=== PATIENT | male | born 1945 | race Caucasian/White ===

== ENCOUNTER 2017-06-03 17:32 | Emergency (ER) | payer MEDICARE ==
[2017-06-03] MEDS ORDERED: Tetracaine 0.5% OPTH.SOL 4 ML* 1 DROP BTL RIGHT EYE ONE (18:16)
[2017-06-03] MEDS ORDERED: Fluorescein Sodium TOPICAL* 1 MG TEST OPHTHALMIC ONE (18:17)
[2017-06-03] MEDS ORDERED: Erythromycin TOPICAL GEL* 30 GM TUBE TOPICAL ONE (18:51)
[2017-06-03] MEDS ORDERED: oxyCODONE/Acetamin 5/325 MG* TAB PO ONE (18:52)
--- NOTE | 2017-06-03 18:55 | ED ---
Throat Pain/Nasal Congestion - HPI Summary HPI Summary: 71M presents with branch to right eye. He does not wear contacts or glasses. He has visible scratch to upper cornea on exam. He admits to photophobia, extreme pain. He admits to watery discharge. He denies any other injury. He has not taken anything for pain. pain is 10/10. - History of Current Complaint Chief Complaint: EDEyeProblem Time Seen by Provider: 06/03/17 18:17 - Allergies/Home Medications Allergies/Adverse Reactions: Allergies Allergy/AdvReac Type Severity Reaction Status Date / Time Buckwheat Allergy ASTHMA, Verified 10/18/12 07:27 WEIRD FEELING IN MOUTH EGGPLANT Allergy WEIRD Uncoded 10/18/12 07:27 FEELING IN MOUTH ENVIRONMENTAL Allergy SINUS Uncoded 07/16/15 14:33 SUNFLOWER SEEDS Allergy WEIRD Uncoded 10/18/12 07:27 FEELING IN MOUTH PMH/Surg Hx/FS Hx/Imm Hx Endocrine/Hematology History: Denies: Hx Diabetes, Hx Thyroid Disease Cardiovascular History: Denies: Hx Hypertension Respiratory History: Reports: Hx Asthma - WELL CONTROLLED Denies: Hx Chronic Obstructive Pulmonary Disease (COPD) GI History: Reports: Hx Gastroesophageal Reflux Disease - AT TIMES- FOOD RELATED Denies: Hx Ulcer History: Reports: Hx Kidney Stones - 1 CURRENTLY- MONITORED- DR. WASHINGTON Sensory History: Reports: Hx Contacts or Glasses - READING Denies: Hx Hearing Aid Opthamlomology History: Reports: Hx Contacts or Glasses - READING - Surgical History Surgery Procedure, Year, and Place: Hernia repair - Immunization History Immunizations Up to Date: Yes Infectious Disease History: No Infectious Disease History: Denies: Hx Hepatitis, Hx Human Immunodeficiency Virus (HIV), History Other Infectious Disease, Traveled Outside the [place] in Last 30 Days - Family History Known Family History: Positive: Hypertension - Social History Alcohol Use: Daily Alcohol Amount: wine Substance Use Type: Reports: None Smoking Status (MU): Never Smoked Tobacco Review of Systems Negative: Fever Positive: Other - pain right eye Negative: Chest Pain Negative: Shortness Of Breath All Other Systems Reviewed And Are Negative: Yes Physical Exam Triage Information Reviewed: Yes Vital Signs On Initial Exam: Initial Vitals Temp Pulse Resp BP Pulse Ox 98.5 F 66 20 146/76 98 06/03/17 17:50 06/03/17 17:50 06/03/17 17:50 06/03/17 17:50 06/03/17 17:50 Vital Signs Reviewed: Yes Appearance: Positive: Pain Distress Skin: Positive: Warm, Dry Head/Face: Positive: Normal Head/Face Inspection Eyes: Positive: Normal, EOMI, ROMULO, Conjunctiva Clear, Other: - uptake at 12 position with scratch down cornea ENT: Positive: Normal ENT inspection, Pharynx normal, TMs normal Respiratory/Lung Sounds: Positive: Clear to Auscultation, Breath Sounds Present Cardiovascular: Positive: Normal, RRR Musculoskeletal: Positive: Normal Neurological: Positive: Normal Psychiatric: Positive: Normal - [place] Coma Scale Coma Scale Total: 15 Procedures - Eye Procedure Alcaine Drops Administered: Yes - uptake at 12 position and scratch down cornea Diagnostics - Vital Signs Vital Signs Temp Pulse Resp BP Pulse Ox 06/03/17 17:50 98.5 F 66 20 146/76 98 - Laboratory Lab Statement: Any lab studies that have been ordered have been reviewed, and results considered in the medical decision making process. EENT Course/Dx - Course Course Of Treatment: 71M presents with branch to right eye. He does not wear contacts or glasses. He has visible scratch to upper cornea on exam. He admits to photophobia, extreme pain. He admits to watery discharge. He denies any other injury. on fluorescein exam has large abrasion to 12 position that extends down as scratch across cornea. will treat with erythromycin ointment and pain medication. gave optho referral. patient understand and agrees with plan. - Differential Diagnoses Differential Diagnoses: Conjunctivitis, Corneal Abrasion, Foreign Body - Diagnoses Provider Diagnoses: Abrasion of right cornea Discharge - Discharge Plan Condition: Good Disposition: HOME Prescriptions: oxyCODONE/Acetamin 5/325 MG* [Percocet 5/325 TAB*] 1 tab PO Q4H PRN #12 tab MDD 6 PRN Reason: Pain Patient Education Materials: Corneal Abrasion (ED) Referrals: Homar Santillan MD [Primary Care Provider] - Darren Marley MD [Medical Doctor] - Additional Instructions: Place 1 ribbon ointment on eye 4 times a day for 5 days Use artificial tears or saline to rinse eye for symptomatic relief Take Tylenol or ibuprofen for pain, use narcotic for break through pain Follow up with ophthalmology within 5 days Return to ED if develop any new or worsening symptoms
[2017-06-03 19:21] VITALS: BP 146/78
[2017-06-03] MEDS ORDERED: Erythromycin OPTH OINT* APPLIC OINT ONE (20:00)
== END 2017-06-03 19:51 | disposition home or self-care (01) ==
LOC: ED 17:32
DX: S05.01XA Injury of conjunctiva and corneal abrasion without foreign body, right eye, initial encounter (principal); X58.XXXA Exposure to other specified factors, initial encounter; Y92.9 Unspecified place or not applicable; J45.909 Unspecified asthma, uncomplicated; K21.9 Gastro-esophageal reflux disease without esophagitis; W22.8XXA Striking against or struck by other objects, initial encounter
CPT/HCPCS: 99282; A9270-GY

== ENCOUNTER 2019-01-23 23:17 | Observation (INO) | payer MEDICARE ==
[2019-01-23] MEDS ORDERED: oxyCODONE/Acetamin 5/325 MG* TAB PO ONE (23:55)
[2019-01-24] MEDS ORDERED: Lidocaine 2% EPI 1:200000 MPF*10-20 ML VIAL ONE (00:08)
--- NOTE | 2019-01-24 00:08 | ED ---
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 The patient also complains of neck soreness. At triage the patient rated his pain as a 3/10 in severity. The patient was placed in a C-collar at triage. He took two Naproxen at 22:30 01/23/19. He thinks that his last tetanus shot was 3 years ago. - History of Current Complaint Chief Complaint: EDHeadInjury Stated Complaint: FELL ON ICE HIT HIS HEAD PER PT Time Seen by Provider: 01/23/19 23:40 Hx Obtained From: Patient Mechanism of Injury: Fall Ambulatory at the Scene: Yes Loss of Consciousness: no loss of consciousness Onset/Duration: Started Minutes Ago, Still Present Onset of Pain: Immediate, Post Accident, Prior to Arrival Onset Severity: Mild Current Severity: Mild Pain Intensity: 3 Pain Scale Used: 0-10 Numeric Location: Head, Neck Character: Aching Aggravating Factor(s): Nothing Alleviating Factor(s): Nothing Associated Signs & Symptoms: Positive: Negative - LOC. Negative: Fever - Allergy/Home Medications Allergies/Adverse Reactions: Allergies Allergy/AdvReac Type Severity Reaction Status Date / Time buckwheat Allergy Unknown Verified 01/24/19 02:46 Reaction Details EGGPLANT Allergy WEIRD Uncoded 10/18/12 07:27 FEELING IN MOUTH ENVIRONMENTAL Allergy SINUS Uncoded 07/16/15 14:33 SUNFLOWER SEEDS Allergy WEIRD Uncoded 10/18/12 07:27 FEELING IN MOUTH PMH/Surg Hx/FS Hx/Imm Hx Endocrine/Hematology History: Denies: Hx Diabetes, Hx Thyroid Disease Cardiovascular History: Denies: Hx Hypertension Respiratory History: Reports: Hx Asthma - WELL CONTROLLED Denies: Hx Chronic Obstructive Pulmonary Disease (COPD) GI History: Reports: Hx Gastroesophageal Reflux Disease - AT TIMES- FOOD RELATED Denies: Hx Ulcer History: Reports: Hx Kidney Stones - 1 CURRENTLY- MONITORED- DR. WASHINGTON Sensory History: Reports: Hx Contacts or Glasses - READING Denies: Hx Hearing Aid Opthamlomology History: Reports: Hx Contacts or Glasses - READING - Surgical History Surgery Procedure, Year, and Place: Hernia repair Infectious Disease History: No Infectious Disease History: Denies: Hx Hepatitis, Hx Human Immunodeficiency Virus (HIV), History Other Infectious Disease, Traveled Outside the [place] in Last 30 Days - Family History Known Family History: Positive: Hypertension - Social History Alcohol Use: Daily Alcohol Amount: wine Substance Use Type: Reports: None Smoking Status (MU): Never Smoked Tobacco Review of Systems Negative: Fever Positive: Other - positive: neck pain Positive: Other - positive: laceration to back of scalp Neurological: Negative - LOC All Other Systems Reviewed And Are Negative: Yes Physical Exam - Summary Physical Exam Summary: VITAL SIGNS: Reviewed. GENERAL: Patient is a well-developed and nourished MALE who is lying comfortable in the stretcher. Patient is not in any acute respiratory distress. HEAD AND FACE: Jess santos striped logo laceration 1.5 cm each, minimal bleeding, No ecchymosis, hematomas or skull depressions. No sinus tenderness. EYES: PERRLA, EOMI x 2, No injected conjunctiva, no nystagmus. EARS: Hearing grossly intact. Ear canals and tympanic membranes are within normal limits. MOUTH: Oropharynx within normal limits. NECK: C-collar is on and placed by triage nurse. Supple, trachea is midline, no adenopathy, no JVD, no carotid bruit, no c-spine tenderness, neck with full ROM CHEST: Symmetric, no tenderness at palpation LUNGS: Clear to auscultation bilaterally. No wheezing or crackles. CVS: Regular rate and rhythm, S1 and S2 present, no murmurs or gallops appreciated. ABDOMEN: Soft, non-tender. No signs of distention. No rebound no guarding, and no masses palpated. Bowel sounds are normal. EXTREMITIES: FROM in all major joints, no edema, no cyanosis or clubbing. NEURO: Alert and oriented x 3. No acute neurological deficits. Speech is normal and follows commands. SKIN: Dry and warm Triage Information Reviewed: Yes Vital Signs On Initial Exam: Initial Vitals Temp Pulse Resp BP Pulse Ox 98.2 F 83 18 157/91 97 01/23/19 23:17 01/23/19 23:17 01/23/19 23:17 01/23/19 23:17 01/23/19 23:17 Vital Signs Reviewed: Yes - [place] Coma Scale Best Eye Response: 4 - Spontaneous Best Motor Response: 6 - Obeys Commands Best Verbal Response: 5 - Oriented Coma Scale Total: 15 Procedures - Laceration/Wound Repair 1 Location: head Description: Irregular Anesthesia: 2.0%, Lido, Epi Length, Depth and Shape: Jess sahud logo laceration 1.5 cm each Closure: Naun #__ - 8 Layer Closure?: Yes Diagnostics - Vital Signs Vital Signs Temp Pulse Resp BP Pulse Ox 01/23/19 23:17 98.2 F 83 18 157/91 97 - Laboratory Result Diagrams: 01/24/19 02:01 01/24/19 02:01 Lab Statement: Any lab studies that have been ordered have been reviewed, and results considered in the medical decision making process. - CT Brain CT Interpretation Completed By: Radiologist Summary of CT Findings: Asymmetric density along left tentorium cerebelli suggesting acute subdural. hemorrhage. No mass effect or midline shift. ED physician has reviewed this imaging report. Cervical spine CT Interpretation Completed By: Radiologist Summary of CT Findings: 1. No evidence of cervical spine fracture or subluxation. 2. Asymmetric density along the left tentorium cerebelli suggesting acute. subdural hemorrhage. See separate head CT report. ED physician has reviewed this imaging report. 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 The physical exam revealed C-collar on placed by triage nurse,. Jess theodore laceration 1.5 cm each, minimal bleeding. Bloodwork and chemistries obtained and are WNL. Brain CT impression: Asymmetric density along left tentorium cerebelli suggesting acute subdural. hemorrhage. No mass effect or midline shift. Cervical spine CT impression: 1. No evidence of cervical spine fracture or subluxation. 2. Asymmetric density along the left tentorium cerebelli suggesting acute. subdural hemorrhage. See separate head CT report. Laceration repair was done with lidocaine 2% with epi, 8 naun and 1 layer closure. In the ED course the patient was given Percocet PO. Case discussed with Dr. Lanza, neurosurgery, who recommended admission. Case discussed with Dr. Chance, hospitalist, who accepted the patient for admission. The patient is agreeable with this plan. - Diagnoses Provider Diagnoses: Subdural hematoma, Scalp laceration - Physician Notifications Discussed Care Of Patient With: Jose Lanza Time Discussed With Above Provider: 02:00 Instructed by Provider To: Other - recommended admission to the hospitalist Discharge - Sign-Out/Discharge Documenting (check all that apply): Patient Departure - admit Patient Received Moderate/Deep Sedation with Procedure: No - Discharge Plan Condition: Fair Disposition: ADMITTED TO [facility] - Billing Disposition and Condition Condition: FAIR Disposition: Admitted to [facility] - Attestation Statements Document Initiated by Debbie: Yes Documenting Scribe: Wilmer Delaney Provider For Whom Debbie is Documenting (Include Credential): Johnna Kraus MD Scribe Attestation: Wilmer Dave, scribed for Johnna Kraus MD on 01/24/19 at 0641. Scribe Documentation Reviewed: Yes Provider Attestation: The documentation as recorded by the Wilmer santos accurately reflects the service I personally performed and the decisions made by Samm rios MD Status of Scribdax Document: Viewed Consult Consult: At 02:[address] Chance, hospitalist, who accepted the patient for admission.
[2019-01-24 02:15] LABS: ABS Eosinophils 0.1 10^3/ul (0-0.6); ABS Monocytes 0.7 10^3/ul (0-0.8); ABS Neutrophils 5.8 10^3/ul (1.5-7.7); Eosinophil % 1.1 %; Hematocrit 43 % (42-52); Lymphocyte % 13.1 %; Mean Corpuscular HGB Conc 35 g/dL (31-36); Mean Corpuscular Hemoglobin 33 pg (27-31); Mean Corpuscular Volume 94 fL (80-94); Mean Platelet Volume 7.7 fL (7.4-10.4); Platelet Count 174 10^3/uL (150-450); Red Blood Count 4.62 10^6 /uL (4.18-5.48); Red Cell Distribution Width 13 % (10-15); White Blood Count 7.7 10^3/uL (3.5-10.8)
[2019-01-24 02:23] LABS: Activated Partial Thrombo Time 31.6 seconds (26.0-38.0); INR 0.97 (0.82-1.09)
[2019-01-24 02:29] LABS: Albumin 4.2 g/dL (3.2-5.2); Albumin/Globulin Ratio 1.6 (1-3); BUN/Creatinine Ratio 32.6 (8-20); Calcium 9.1 mg/dL (8.6-10.3); EGFR African American 94.6 (>60); EGFR Non-African American 78.2 (>60); Globulin 2.6 g/dL (2-4); Total Bilirubin 0.5 mg/dL (0.2-1.0); Total Protein 6.8 g/dL (6.4-8.9)
[2019-01-24] MEDS ORDERED: Acetaminophen TAB* 325 MG PO PRN (03:01)
[2019-01-24] MEDS ORDERED: traMADol TAB* 50 MG PO PRN (03:01)
[2019-01-24 03:17] LABS: Potassium 4.2 mmol/L (3.5-5.0)
--- NOTE | 2019-01-24 05:44 | HP ---
CC: Dr. Santillan.* HISTORY AND PHYSICAL: DATE OF ADMISSION: 01/24/19 PRIMARY CARE PROVIDER: Dr. Santillan. CHIEF COMPLAINT: Fall and head laceration. HISTORY OF PRESENT ILLNESS: Mr. Nash is a 73-year-old male with no significant past medical history, who presents to the emergency room after slipping on ice while curling and striking to the back of his head on the ice. The patient sustained a Jess-Jose shaped laceration to the posterior aspect of his scalp. There was bleeding from this. The patient also had soreness in his neck when he arrived to the emergency room. The patient states that he has no pain at this point. He had no loss of consciousness after he hit his head. He did take two Advil after striking his head on the ice. At this point, otherwise, the patient is feeling quite well. PAST MEDICAL HISTORY: 1. Questionable BPH. 2. History of nephrolithiasis. PAST SURGICAL HISTORY: Left inguinal hernia repair. MEDICATIONS: Essentially none. The patient intermittently is taking multivitamin. ALLERGIES: No known drug allergies. FAMILY HISTORY: Mom is living, she is 102. She has a history of dementia and hypertension. Dad at the age of 55 after a missed diagnosis of appendicitis. The patient's brother has a history of rectal cancer. SOCIAL HISTORY: The patient is a nonsmoker. He does drink 1 alcoholic beverage daily. 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 He is . He has no children. He indicates that his would be his healthcare proxy. REVIEW OF SYSTEMS: A complete 11 system review of systems was obtained. Pertinent positives and negatives are as per HPI and otherwise negative. PHYSICAL EXAMINATION GENERAL: The patient is a well-developed, elderly male, seen sitting up in the stretcher, in no acute distress. VITAL SIGNS: Blood pressure 154/76, pulse 67, respirations 17, temp 98.2, O2 sat 94% on room air. HEENT: Pupils are equal and round. Extraocular muscles are intact. Oropharynx is clear. Oral mucosa is moist. Dentition is in good repair. There is no submandibular, cervical or supraclavicular adenopathy. Thyroid is not enlarged. No thyroid nodules are noted. PULMONARY: Lungs are clear to auscultation bilaterally. CARDIAC: Normal S1 and S2. Regular rate and rhythm. I do not appreciate any murmurs. There is no lower extremity edema. ABDOMEN: Bowel sounds are present. Abdomen is soft, nontender, nondistended. MUSCULOSKELETAL: There is no cyanosis or clubbing of the digits. There is full active range of motion of all 4 extremities. NEUROLOGIC: Cranial nerves II through XII are grossly intact. Sensation is intact to light touch throughout. Strength is 5/5 and symmetric to both upper and lower extremities bilaterally. SKIN: Warm and dry. There are no rashes, laceration was repaired by Dr. Kraus in the emergency room and covered in a dry dressing, which is not removed by myself at this time. PSYCH: The patient is alert. He is oriented x3. Affect appears appropriate. LABORATORY DATA/DIAGNOSTIC STUDIES: WBC 7.7, hemoglobin 15.0, hematocrit 43, platelets 174. INR 0.97. Sodium 138, potassium pending, chloride 107, CO2 24, BUN 31, creatinine 0.95, glucose 137, calcium 9.1. Bilirubin 0.5, AST pending, ALT 15, alk phos 64, albumin 4.2. CT brain, asymmetric density along the left tentorium cerebelli suggesting acute subdural hemorrhage. No mass effect or midline shift is noted. CT cervical spine, no evidence of cervical spine fracture or subluxation. ASSESSMENT AND PLAN: Mr. Nash is a 73-year-old male with no significant past medical history, who presents to the emergency room after sustaining a slip on the ice, small curling striking the posterior aspect of his head sustaining a laceration and no evidence of an acute subdural hemorrhage. 1. Subdural hemorrhage. At this point, the patient is neurologically intact. He will be admitted to the intensive care unit with neuro checks q.[address] Lanza was called by Dr. Kraus in the emergency room and the patient will be seen by Neurosurgery later this morning. A repeat CT brain will be ordered for 8 o'clock to ensure stability of the subdural hemorrhage. 2. Hypertension. The patient's blood pressure has been moderately elevated to 150 systolic. At this point, I am going to hold off on initiating antihypertensives; however, his blood pressure should be followed and if he remains elevated, it would be appropriate to begin low dose antihypertensive treatment. 3. DVT prophylaxis: According to the Adult Thrombosis Prophylaxis Risk Factor Assessment Guide, the patient has a total risk factor score of 2 making him moderate risk. SCDs will be utilized as DVT prophylaxis only given the subdural hemorrhage. TIME SPENT: Fifty-five minutes was spent admitting this patient. [id number]/[facility] #: [id number] EFRAÍN
--- NOTE | 2019-01-24 08:12 | CONSULT ---
Consult Consult: Neurosurgery Consult Date of Admission: 01/24/19 Date of Consult: 01/24/19 Referring Provider: Dr. Chance PCP: Dr. Santillan Reason for Referral: left tentorium SDH HPI: This is a 73 year old male who presented to [facility] after sustaining injury to the head when he was curling and fell on the ice. At approximately 2230, he had just thrown the rock when he was moving across the ice out of the way and his right foot slipped out from under him and he fell backward. He is unsure why he slipped, but states there was possibly an ice chip under his shoe. He does not think he lost consciousness. He was able to sit up and experienced posterior head pain. He was given an ice pack for his head and took 2 ibuprofen. He then had a friend drive him to the ED for treatment of the head laceration. Prior to the injury yesterday, he was feeling well and denies recent illness. He denies headache, vision change, speech change, difficulty swallowing, nausea, vomiting, lightheadedness, dizziness, abdominal pain, seizure, weakness and numbness in upper and lower extremities. He does report posterior neck muscular soreness which he states is typical after biking. CT brain was obtained in ED showing small left SDH along the tentorium. He was admitted to ICU by hospitalist for observation. Currently he is feeling quite well although tired because he was not able to get any sleep last night. Past Medical History: 1. Nephrolithiasis 2. BPH Past Surgical History: 1. Inguinal hernia repair many years ago Home Medications: 1. Multivitamin [Multivitamins] 1 cap PO DAILY 10/09/12 [History Confirmed 01/24] 2. Lutein 15 mg Softgel 15 mg PO DAILY 01/24/19 [History Confirmed 01/24/19] Allergies: 1. buckwheat Allergy (Verified 01/24/19 02:46) Unknown Reaction Details 2. EGGPLANT Allergy (Uncoded 10/18/12 07:27) WEIRD FEELING IN MOUTH 3. ENVIRONMENTAL Allergy (Uncoded 07/16/15 14:33) SINUS Mold and Dust 4. 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 He lives in [place] with his . He is active with biking and curling exercise. He is a nonsmoker. ROS: Full ROS completed. Pertinent findings stated in HPI and all others negative. Physical Exam: Vital Signs: Temp Pulse Resp BP Pulse Ox 98 F 75 16 153/77 97 01/24/19 08:00 01/24/19 09:00 01/24/19 09:00 01/24/19 09:00 01/24/19 09:00 General: Alert, recumbent in bed. NAD HEENT: Head is normocephalic. PERRL, EOMI, Moist mucus membranes. Corrective lenses for reading. Laceration: There is a laceration to the occiput with 2 segments measuring approximatelt 2 cm each. Wound is closed with 8 shyam placed in ED, dressing in place. No swelling, erythema, tenderness. Neck: Supple, symmetric. Mild paraspinal muscle soreness with palpation. No obvious deformity. CV: Radial and pedal pulses 2+ and equal Lungs: Breathing is nonlabored Neuro: Speech is clear. Oriented to person, place, date and situation. CN II- XII intact. Sensation intact throughout. Strength 5/5 bilateral upper and lower extremities. Coordination intact. Hoffmans negative. No pronator drift. Extremities: No edema Imagin. CT brain on 01/24/19 shows small left SDH along tentorium Assessment and Plan: This is a healthy 73 year old male who fell at approximately 2230 on 01/23/19 sustaining laceration to the posterior head and small left SDH along the tentorium. Neurologically intact on exam today and asymptomatic. Recommend follow up CT brain at 1200 today. No surgical intervention at this time. Consider discharge home if CT stable. This case was discussed with Dr. Lanza and Dr. Santillan.
--- NOTE | 2019-01-24 08:21 | PN ---
Subjective - Subjective Reason for Note: Discharge Note History: DISCHARGE SUMMARY I obtained the history from Mr. Edwards. He fell backwards on ice and hit his head causing a subdural hematoma. He had no loss of consciousness. This morning he has no headache, change in vision, nausea, numbness, weakness or other neurological symptoms. He thinks he slipped on an ice chip - but doesn't fully understand the mechanics of the fall. Otherwise, he is feeling well. Active Problems: Active Problems Fall from ice-skates (Acute) V00.211A Subdural hematoma (Acute) S06.5X9A BPH (benign prostatic hyperplasia) (Chronic) N40.0 Nephrolithiasis (Chronic) N20.0 Current Medications: Current Medications Acetaminophen (Tylenol Tab*) 650 mg PO Q4H PRN PRN Reason: PAIN Tramadol HCl (Ultram*) 50 mg PO Q6H PRN PRN Reason: PAIN Home Medications: Home Medications Medication Instructions Recorded Confirmed Type Multivitamin [Multivitamins] 1 cap PO DAILY 10/09/12 01/24/19 History Lutein 15 mg Softgel 15 mg PO DAILY 01/24/19 01/24/19 History Allergies: Allergies Allergy/AdvReac Type Severity Reaction Status Date / Time buckwheat Allergy Unknown Verified 01/24/19 02:46 Reaction Details EGGPLANT Allergy WEIRD Uncoded 10/18/12 07:27 FEELING IN MOUTH ENVIRONMENTAL Allergy SINUS Uncoded 07/16/15 14:33 SUNFLOWER SEEDS Allergy WEIRD Uncoded 10/18/12 07:27 FEELING IN MOUTH Objective - Vital Signs Vital Signs: Vital Signs 01/23/19 01/23/19 01/24/19 23:17 23:38 00:02 Temperature 98.2 F Pulse Rate 83 72 Respiratory 18 17 Rate Blood Pressure 157/91 (mmHg) O2 Sat by Pulse 97 97 Oximetry 01/24/19 01/24/19 01/24/19 00:25 00:56 01:26 Temperature Pulse Rate Respiratory Rate Blood Pressure 157/92 165/86 154/90 (mmHg) O2 Sat by Pulse Oximetry 01/24/19 01/24/19 01/24/19 01:52 01:56 02:08 Temperature Pulse Rate 75 71 69 Respiratory 15 15 11 Rate Blood Pressure 144/87 (mmHg) O2 Sat by Pulse 96 95 95 Oximetry 01/24/19 01/24/1919 02:26 02:53 02:56 Temperature Pulse Rate 69 73 68 Respiratory 15 17 17 Rate Blood Pressure 158/82 157/83 154/76 (mmHg) O2 Sat by Pulse 96 97 94 Oximetry 01/24/19 01/24/19 01/24/19 03:00 03:26 03:35 Temperature 98.2 F Pulse Rate 69 67 Respiratory 14 12 14 Rate Blood Pressure 150/82 150/82 (mmHg) O2 Sat by Pulse 95 98 Oximetry 01/24/19 01/24/19 01/24/19 03:59 04:00 04:01 Temperature 98.3 F Pulse Rate 68 67 68 Respiratory 17 14 17 Rate Blood Pressure 155/96 155/96 (mmHg) O2 Sat by Pulse 97 96 97 Oximetry 01/24/19 01/24/19 01/24/19 05:00 06:00 07:00 Temperature Pulse Rate 64 64 62 Respiratory 16 17 15 Rate Blood Pressure 148/86 159/78 149/81 (mmHg) O2 Sat by Pulse 96 96 97 Oximetry - Intake and Output Intake and Output: Intake & Output 01/21/19 01/22/19 01/23/19 01/24/19 11:59 11:59 11:59 11:59 Intake Total 480 Output Total 275 Balance 205 Weight 189 lb 13.088 oz Intake: Oral 480 Output: Urine 275 ADLs: Meal Record Start: 01/24/19 03: 59 Freq: 09,13,18 Status: Active Protocol: Created 01/24/19 03:59 System (Rec: 01/24/19 03:59 System [id number]) Intake and Output Start: 01/23/19 23: 26 Freq: Status: Active Protocol: Created 01/23/19 23:26 System (Rec: 01/23/19 23:26 System [id number]) Intake and Output Start: 01/24/19 03: 59 Freq: Q4HR Status: Active Protocol: Created 01/24/19 03:59 System (Rec: 01/24/19 03:59 System [id number]) Document 01/24/19 05:00 [id number] (Rec: 01/24/19 05:27 [id number]) - Physical Exam General: No Cyanosis, No Anemia, No Jaundice, No Clubbing Lungs and Chest: Yes: Chest Expansion Full, Chest Expansion Symetrica, Percussion Note Resonant, Vessicular Breath Sounds. No: Crackles, Wheezes Heart Rate and Rhythm: Regular JVP: Not Elevated Additional Cardiovascular: Yes: Normal Heart Sounds. No: Heart Murmur, Pedal Edema Abdominal Exam: Yes: Soft, Bowel Sounds Present. No: Distention, Abdominal Tenderness - Extremities Cranial Nerves II-XII Intact: Yes Limbs: Normal Power, Normal Tone, Normal Coordination - Neuro Orientation: A/O x3 Speech: Normal Results - Results Lab Results: Laboratory Results - last 24 hr 01/24/19 01/24/19 01/24/19 02:01 02:01 02:01 WBC 7.7 RBC 4.62 Hgb 15.0 Hct 43 MCV 94 MCH 33 H MCHC 35 RDW 13 Plt Count 174 MPV 7.7 Neut % (Auto) 76.1 Lymph % (Auto) 13.1 Loup % (Auto) 9.3 Eos % (Auto) 1.1 Baso % (Auto) 0.4 Absolute Neuts (auto) 5.8 Absolute Lymphs (auto) 1.0 Absolute Monos (auto) 0.7 Absolute Eos (auto) 0.1 Absolute Basos (auto) 0.0 Absolute Nucleated RBC 0.0 Nucleated RBC % 0.0 INR (Anticoag Therapy) 0.97 APTT 31.6 Sodium 138 Potassium 4.2 Chloride 107 Carbon Dioxide 24 Anion Gap 7 BUN 31 H Creatinine 0.95 Est GFR ( Amer) 94.6 Est GFR (Non-Af Amer) 78.2 BUN/Creatinine Ratio 32.6 H Glucose 137 H Calcium 9.1 Total Bilirubin 0.50 AST 20 ALT 15 Alkaline Phosphatase 64 Total Protein 6.8 Albumin 4.2 Globulin 2.6 Albumin/Globulin Ratio 1.6 Radiology Results: Patient Name: TRENTON EDWARDS Medical Record#: [id number] Ordering Physician: Johnna Kraus MD Acct.#: [id number] : 1945 Age: 73 Sex: M Location: EMERGENCY DEPARTMENT Exam Date: 01/23/192353 ADM Status: REG ER Order Information: CT BRAIN WO Accession Number: [id number] CPT: 16094 EXAM: CT Head Without Contrast EXAM DATE/TIME: 01/24/2019 12:16 AM CLINICAL HISTORY: 73 years old, male; Injury or trauma; Fall TECHNIQUE: Imaging protocol: Axial computed tomography images of the head without contrast. Coronal and sagittal reformatted images were created and reviewed. Radiation optimization: All CT scans at this facility use at least one of these dose optimization techniques: automated exposure control; mA and/or kV adjustment per patient size (includes targeted exams where dose is matched to clinical indication); or iterative reconstruction. COMPARISON: No relevant prior studies available. FINDINGS: Brain: There is asymmetric density along the left tentorium cerebelli suggesting acute subdural hemorrhage. Francisco/white differentiation is maintained with no evidence of acute infarct. No mass effect or midline shift. Ventricles: Normal configuration. No hydrocephalus. Bones/joints: No acute fracture. Sinuses: Normal as visualized. No air fluid levels. Mastoid air cells: No mastoid effusion. Soft tissues: Normal. IMPRESSION: Asymmetric density along left tentorium cerebelli suggesting acute subdural hemorrhage. No mass effect or midline shift. To contact [facility] with a general question: [facility] - [phone] For direct physician to physician contact: Physician Hotline - [phone] [facility] ([facility] Facility ID #[id number]) <Electronically signed by Amber Cristina MD in OV> 01/24/19125 Dictated By: Amber Cristina MD Dictated Date/Time: 01/24/19125 Transcribed Date/Time: Copy to: Patient Name: TRENTON EDWARDS Medical Record#: [id number] Ordering Physician: Johnna Kraus MD Acct.#: [id number] : 1945 Age: 73 Sex: M Location: EMERGENCY DEPARTMENT Exam Date: 01/24/199 ADM Status: REG ER Order Information: CT SPINE CERVICAL W/O Accession Number: [id number] CPT: 55726 EXAM: CT Cervical Spine Without Contrast EXAM DATE/TIME: 01/24/2019 12:17 AM CLINICAL HISTORY: 73 years old, male; Injury or trauma; Fall; Initial encounter; Abrasion TECHNIQUE: Imaging protocol: Axial computed tomography images of the cervical spine without contrast. Coronal and sagittal reformatted images were created and reviewed. Radiation optimization: All CT scans at this facility use at least one of these dose optimization techniques: automated exposure control; mA and/or kV adjustment per patient size (includes targeted exams where dose is matched to clinical indication); or iterative reconstruction. COMPARISON: No relevant prior studies available. FINDINGS: Limitations: Image quality is degraded by motion artifact. Vertebrae: No acute fracture or subluxation identified. 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 Discs/Spinal canal/Neural foramina: See Vertebrae Finding. Epidural space: No epidural hematoma. Prevertebral Space: Prevertebral soft tissues are normal. Soft tissues: Asymmetric density is noted along the left tentorium cerebelli suggesting acute subdural hemorrhage. Lungs: Lung apices are normal. IMPRESSION: 1. No evidence of cervical spine fracture or subluxation. 2. Asymmetric density along the left tentorium cerebelli suggesting acute subdural hemorrhage. See separate head CT report. To contact [facility] with a general question: [facility] - [phone] For direct physician to physician contact: Physician Hotline - [phone] [facility] ([facility] Facility ID #[id number]) <Electronically signed by Amber Cristina MD in OV> 01/24/19136 Dictated By: Amber Cristina MD Dictated Date/Time: 01/24/19136 Transcribed Date/Time: This report is only to be considered final once signed by the Provider(s) as displayed in the "<Electronically Signed by >" field (s). Absence of a signature indicates the report is in a draft status and still needs to be finalized. In the event this document was created by someone other than the signing Provider, the individual initiating the document will be listed in the "Entered by:" or "Dictated by:" pineda. 1 of 2 Assessment - Problem List Assessment: Patient Problems Fall from ice-skates (Acute) Subdural hematoma (Acute) BPH (benign prostatic hyperplasia) (Chronic) Nephrolithiasis (Chronic) Plan: Fall from ice-skates (Acute) Subdural hematoma (Acute) This was a mechanical fall. He feels well this morning and has no neurological symptoms or signs on examination. He is fully alert and oriented, insightful. I reviewed the CT scan of the head with [facility] for neurosurgery. This is small and there is no displacement/mass effect on the brain. We will repeat the CT scan midday and if there is no change, discharge him home BPH (benign prostatic hyperplasia) (Chronic) secondary diagnosis Nephrolithiasis (Chronic) secondary diagnosis I discussed the above with the patient. He agrees with the management plan
[2019-01-24 12:23] VITALS: BP 143/78
--- NOTE | 2019-01-24 12:27 | PN ---
Progress Note - Progress Note Date of Service: 01/24/19 Note: I reviewed the follow up CT scan of the brain with the radiologist. The signs of the likely subdural are unchanged. I spoke to the patient and his . He remains symptomless. I have therefore discharged him. He will see me as an outpatient next week.
== END 2019-01-24 12:53 | disposition home or self-care (01) ==
LOC: ED 23:17 → ICU 01-24 03:01
PROVIDERS: ADMIT Hospitalist; ATTEND Internal Medicine
DX: S01.91XA Laceration without foreign body of unspecified part of head, initial encounter (principal); S00.03XA Contusion of scalp, initial encounter; M54.2 Cervicalgia; W00.0XXA Fall on same level due to ice and snow, initial encounter; Y92.9 Unspecified place or not applicable; N40.0 Benign prostatic hyperplasia without lower urinary tract symptoms; Z87.442 Personal history of urinary calculi; I10 Essential (primary) hypertension; K21.9 Gastro-esophageal reflux disease without esophagitis
CPT/HCPCS: 12002; 36415; 70450; 72125; 80053; 85025; 85610; 85730; 87641; 99284; A9270-GY; G0378